=== PATIENT | male | born 1995 | race Two or more races ===

== ENCOUNTER 2021-02-08 13:39 | Emergency (ER) | payer SELFPAY ==
[~2021-02-08] VITALS: Ht 172.7 cm; Wt 113.4 kg
--- NOTE | 2021-02-08 13:59 | NUR ---
PT AMBULATORY TO ER BED 04 C/O LUQ ABDOMINAL PAIN NON RADIATING ON AND OFF SINCE SATURDAY PT STATES PAIN WORST EARLIER. DENIES N/V/D. PT STATES SIMILAR SYMPTOM A WHILE BACK BUT WAS NOT SEEN BY A DOCTOR BECAUSE IT WENT AWAY. 03/13 PAIN, STABLE VITALS. AWAITING MD ROSALES.
--- NOTE | 2021-02-08 14:31 | NUR ---
DR BURNS AT BEDSIDE FOR EVAL.
[2021-02-08] MEDS ORDERED: LIDOCAINE VISCOUS 2% UD 15 ML UDC ONE (14:37)
[2021-02-08] MEDS ORDERED: DICYCLOMINE HCL 10 MG CAPSULE PO ONE ×2 (14:37→15:00)
[2021-02-08] MEDS ORDERED: MAG HYDROX/AL HYDROX/SIMETH 30 ML UDC ONE (14:37)
[2021-02-08 14:55] LABS: BASOPHILS % (AUTO) 0.5 % (0.0-2.0); EOSINOPHILS % (AUTO) 1.6 % (0.0-6.0); HEMATOCRIT 46 % (39-51); HEMOGLOBIN 15.5 g/dL (13.5-17.5); LYMPHOCYTES # (AUTO) 1.6 /CMM (0.8-4.8); LYMPHOCYTES % (AUTO) 27.1 % (20.0-44.0); MEAN CORPUSCULAR HGB CONC 34 g/dl (31.0-36.0); MEAN CORPUSCULAR VOLUME 94 fL (80-96); MONOCYTES # (AUTO) 0.3 /CMM (0.1-1.30); MONOCYTES % (AUTO) 5.8 % (2.0-12.0); NEUTROPHILS # (AUTO) 3.8 /CMM (1.8-8.9); PLATELET COUNT (AUTO) 199 /CMM (150-450); RED BLOOD CELL COUNT(AUTO) 4.89 MIL/uL (4.5-6.0); WHITE BLOOD COUNT (AUTO) 5.8 K/uL (4.3-11.0)
[2021-02-08] MEDS ORDERED: MAG HYDROX/AL HYDROX/SIMETH 30 ML UDC PO ONE (15:00)
[2021-02-08] MEDS ORDERED: LIDOCAINE VISCOUS 2% UD 15 ML UDC MM ONE (15:00)
[2021-02-08 15:04] LABS: CALCIUM, SERUM 9.3 mg/dL (8.5-10.1); CREATININE 0.9 mg/dL (0.6-1.3)
[2021-02-08 15:14] LABS: ALBUMIN 3.8 g/dL (3.4-5.0); BILIRUBIN,DIRECT 0.1 mg/dL (0.0-0.2); BILIRUBIN,TOTAL 0.5 mg/dL (0.2-1.0); TOTAL PROTEIN, SERUM 7.2 g/dL (6.4-8.2)
[2021-02-08] MEDS ORDERED: DICY20TA11 PO (15:40)
--- NOTE | 2021-02-08 16:20 | NUR ---
Patient discharged to home in stable condition. Written and verbal after care instructions given. Patient verbalizes understanding of instruction.
[2021-02-08 16:21] VITALS: BP 130/86
== END 2021-02-08 16:22 | disposition home or self-care (01) ==
LOC: ER 13:39
DX: K58.9 Irritable bowel syndrome, unspecified (principal); R10.84 Generalized abdominal pain
CPT/HCPCS: 36415; 80048-TC; 80076-TC; 83690-TC; 85025-TC

== ENCOUNTER 2021-06-12 14:37 | Emergency (ER) | payer MEDICAID, OTHER ==
[~2021-06-12] VITALS: Ht 172.7 cm; Wt 113.4 kg
[~2021-06-12 14:37] MED LIST: DICY20TA11 PO
[2021-06-12 15:17] VITALS: BP 126/73
[2021-06-12] MEDS ORDERED: ACETAMINOPHEN 325 MG TABLET ONE (17:15)
[2021-06-12] MEDS ORDERED: IBUPROFEN 600 MG TABLET ONE (17:15)
[2021-06-12] MEDS: IBUPROFEN 600 MG TABLET PO ONE (17:18)
[2021-06-12] MEDS: ACETAMINOPHEN 325 MG TABLET PO ONE (17:18)
--- NOTE | 2021-06-12 17:27 | NUR ---
STREP THROAT SWAB SENT TO LAB
[2021-06-12] MEDS ORDERED: IBUP-1955 PO (18:15)
--- NOTE | 2021-06-12 18:22 | NUR ---
COVID SWAB SENT
--- NOTE | 2021-06-12 18:31 | NUR ---
Patient discharged to home in stable condition. Written and verbal after care instructions given. Patient verbalizes understanding of instruction.
--- NOTE | 2021-06-12 19:23 | NUR ---
REC'D + COVID RESULT FROM LAB. CALLED PT AND MADE HIM AWARE, PA ALSO MADE AWARE
== END 2021-06-12 18:31 | disposition home or self-care (01) ==
LOC: ER 14:52
DX: U07.1 COVID-19 (principal)
CPT/HCPCS: 87070; 87426; 87880; 99283; C9803; 86403-TC

== ENCOUNTER 2021-06-18 07:51 | Inpatient (IN) | payer OTHER ==
[~2021-06-18] VITALS: Ht 172.7 cm; Wt 113.4 kg
[~2021-06-18 07:51] MED LIST changes: +IBUP-1955 PO
--- NOTE | 2021-06-18 07:51 | NUR ---
PT BIB SELF C/O WORSENING SOB, ,TESTED (+) TO COVID 19 06/12/2021. 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 WILL CONTINUE TO MONITOR.
--- NOTE | 2021-06-18 08:05 | NUR ---
SEEN AND EXAMINED BY .
--- NOTE | 2021-06-18 08:27 | NUR ---
IV LINE ESTABLISHED BLOOD DRAWN AND SENT TO LAB.
[2021-06-18 08:42] LABS: BASOPHILS % (AUTO) 0.3 % (0.0-2.0); EOSINOPHILS % (AUTO) 1.4 % (0.0-6.0); HEMATOCRIT 46 % (39-51); HEMOGLOBIN 15.7 g/dL (13.5-17.5); LYMPHOCYTES # (AUTO) 1.1 K/uL (0.8-4.8); LYMPHOCYTES % (AUTO) 21.6 % (20.0-44.0); MEAN CORPUSCULAR HGB CONC 35 g/dl (31.0-36.0); MEAN CORPUSCULAR VOLUME 91 fL (80-96); MONOCYTES # (AUTO) 0.4 K/uL (0.1-1.30); MONOCYTES % (AUTO) 8.3 % (2.0-12.0); NEUTROPHILS # (AUTO) 3.3 K/uL (1.8-8.9); NEUTROPHILS % (AUTO) 68.4 % (43.0-81.0); PLATELET COUNT (AUTO) 244 K/uL (150-450); RED BLOOD CELL COUNT(AUTO) 5.02 MIL/uL (4.5-6.0); WHITE BLOOD COUNT (AUTO) 4.9 K/uL (4.3-11.0)
[2021-06-18 08:51] LABS: CALCIUM, SERUM 9.5 mg/dL (8.5-10.1); CARBON DIOXIDE 27 mmol/L (21-32); CHLORIDE 107 mmol/L (98-107); GLUCOSE 111 mg/dL (74-106); POTASSIUM 3.3 mmol/L (3.5-5.1); SODIUM SERUM 147 mmol/L (136-145); UREA NITROGEN, BLOOD 14 mg/dL (7-18)
[2021-06-18 09:05] LABS: ALANINE AMINOTRANSFERASE 49 U/L (12-78); ALBUMIN 3.4 g/dL (3.4-5.0); ALKALINE PHOSPHATASE 67 U/L (46-116); ASPARTATE AMINOTRANSFERASE 28 U/L (15-37); BILIRUBIN,TOTAL 0.5 mg/dL (0.2-1.0); TOTAL PROTEIN, SERUM 7.9 g/dL (6.4-8.2)
[2021-06-18] MEDS ORDERED: DEXAMETHASONE SOD PHOSPHATE 6 MG in IV D5W 50 ML IV ONE (09:30)
[2021-06-18] MEDS ORDERED: CEFTRIAXONE 1 G in IV D5W 50 ML IV ONE (09:30)
[2021-06-18] MEDS ORDERED: AZITHROMYCIN 250 MG TABLET PO ONE (09:30)
[2021-06-18] MEDS ORDERED: AZITHROMYCIN 250 MG TABLET ONE (09:31)
[2021-06-18] MEDS ORDERED: CEFTRIAXONE 1GM BAG (ER ONLY) 50 ML IV ONE (09:31)
[2021-06-18] MEDS ORDERED: DEXAMETHASONE SOD PHOSPHATE 10 MG/ML VIAL ONE (09:31)
[2021-06-18] MEDS ORDERED: DEXAMETHASONE SOD PHOSPHATE 10 MG/ML VIAL IV ONE (10:00)
--- NOTE | 2021-06-18 10:26 | NUR ---
ROOM GIVEN 112-1
--- NOTE | 2021-06-18 10:32 | NUR ---
MOVE SHEET SUBMITTED.
--- NOTE | 2021-06-18 10:52 | NUR ---
CALLED FOR REPORT. RN NOT AVAILABLE.
--- NOTE | 2021-06-18 11:14 | NUR ---
REPORT GIVEN TO RN SOON FOR KEVYN.
--- NOTE | 2021-06-18 11:24 | NUR ---
[facility] CALLED CONFIGURATION DEVELOPER PAGED.
[2021-06-18 12:30] VITALS: BP 122/73
--- NOTE | 2021-06-18 12:30 | NUR ---
RN NOTE PT A/Ox4, BREATHING RA, NO S/S OF RESP DISTRESS OR SOB, BREATHING EVEN AND UNLABORED, SPO2 94%. ALL COVID PRECAUTIONS IN PLACE. PT RAC #20 INACT AND FLUSHED, PATENT. PT DENIES PAIN, STATES ONLY SYMPTOM CURRENTLY IS FATIGUE. PT DID NOT OBTAIN COVID VAX. SKIN IS INTACT. STABLE WHEN ABMULATING. ALL PT SAFETY PRECAUTIONS IN PLACE, WILL CONT TO MONITOR
[2021-06-18] MEDS ORDERED: Z GUARD REMEDY 2 OZ OINT TP PRN (13:00)
[2021-06-18] MEDS ORDERED: ALBUTEROL SULFATE 8 GM HFA.AER.AD IH PRN (13:00)
[2021-06-18] MEDS ORDERED: MAG HYDROX/AL HYDROX/SIMETH 30 ML UDC PO PRN (13:00)
[2021-06-18] MEDS ORDERED: MAGNESIUM HYDROXIDE 30 ML UDC PO PRN (13:00)
[2021-06-18] MEDS ORDERED: ONDANSETRON HCL/PF 4 MG/2 ML VIAL IVP PRN (13:00)
[2021-06-18] MEDS ORDERED: ACETAMINOPHEN 325 MG TABLET PO PRN (13:00)
[2021-06-18] MEDS ORDERED: ZOLPIDEM TARTRATE 5 MG TABLET PO PRN (13:00)
[2021-06-18] MEDS ORDERED: HYDROCODONE/APAP 5/325MG TABLET PO PRN (13:00)
[2021-06-18 13:35] LABS: C-REACTIVE PROTEIN 4.5 mg/dL (0.0-0.9)
[2021-06-18] MEDS: ENOXAPARIN SODIUM 40 MG/0.4 ML DISP.SYRIN SQ SCH (14:11)
[2021-06-18] MEDS ORDERED: GUAIFENESIN/CODEINE 10 ML UDC PO PRN (14:30)
[2021-06-18] MEDS: CEFTRIAXONE 1 G in IV D5W 50 ML IV SCH (15:10)
[2021-06-18 16:00] VITALS: BP 122/71
--- NOTE | 2021-06-18 19:17 | NUR ---
RN CLOSING NOTE PT STABLE, ON RA, NO S/S OF RESP DISTRESS OR SOB. ALL PT SAFETY PRECAUTINOS IN PLACE, KEVYN ENDORSED TO RN
[2021-06-18 20:00] VITALS: BP 123/74
[2021-06-19] VITALS: BP 118/72
[2021-06-19 04:00] VITALS: BP 121/74
--- NOTE | 2021-06-19 07:16 | NUR ---
RN NOTE PATIENT A/O X4, IN BED AT RA SATURATING > 93%, NO SOB/ACUTE DISTRESS NOTED THROUGHOUT THE NIGHT, AFEBRILE, BED LOCKED AND LOWEST POSITION, S/R OF BED X2 UP, CALL MCKINNEY WITHIN REACH, ALL SAFETY PRECAUTIONS IN PLACED, WILL ENDORSE CONTINUITY OF CARE TO ONCOMING NURSE.
--- NOTE | 2021-06-19 07:25 | NUR ---
RN OPENING NOTE RECEIVED PATIENT IN BED. A/O X4. ON ROOM AIR, NO SOB NOTED. NO S/S OF RESPIRATORY DISTRESS. TELE READING SHOWS SR 70'S. DENIES ANY PAIN OR DISCOMFORT AT THIS TIME. IV ACCESS ON R AC #20, INTACT AND PATENT. SAFETY MEASURES MAINTAINED. BED IN LOWEST POSITION, BRAKES LOCKED. SIDE RAILS UP X2. CALL LIGHT WITHIN REACH. WILL CONTINUE PLAN OF CARE.
[2021-06-19 08:00] VITALS: BP 115/77
[2021-06-19] MEDS: AZITHROMYCIN 500 MG in IV D5W 250 ML IV SCH (08:20)
[2021-06-19] MEDS: PANTOPRAZOLE 40 MG TABLET.DR PO SCH (08:21)
[2021-06-19] MEDS: DEXAMETHASONE SOD PHOSPHATE 10 MG/ML VIAL IV SCH (08:21)
[2021-06-19 12:25] VITALS: BP 129/79
[2021-06-19] MEDS: ENOXAPARIN SODIUM 40 MG/0.4 ML DISP.SYRIN SQ SCH (13:04)
[2021-06-19] MEDS: CEFTRIAXONE 1 G in IV D5W 50 ML IV SCH (14:02)
[2021-06-19 15:14] LABS: C-REACTIVE PROTEIN 1.9 mg/dL (0.0-0.9)
[2021-06-19 16:00] VITALS: BP 111/65
--- NOTE | 2021-06-19 18:04 | NUR ---
RN CLOSING NOTE PATIENT RESTING IN BED. A/O X4. AMBULATORY. ON ROOM AIR, NO SOB NOTED. NO S/S OF RESPIRATORY DISTRESS. TELE READING SHOWS SR 70'S. NO REPORTS OF ANY PAIN OR DISCOMFORT AT THIS TIME. IV ACCESS ON R AC #20, INTACT AND PATENT. NO SIGNS OF INFILTRATION. DUE MEDS GIVEN ORDERED. ALL NEEDS HAVE BEEN MET AND ATTENDED. SAFETY MEASURES MAINTAINED. BED IN LOWEST POSITION, BRAKES LOCKED. SIDE RAILS UP X2. KEPT CALL LIGHT WITHIN REACH. WILL ENDORSE CONTINUITY OF CARE TO ONCOMING SHIFT.
[2021-06-19 20:00] VITALS: BP 117/84
--- NOTE | 2021-06-19 20:00 | NUR ---
[facility] NOTE PT IN BED AWAKE. A/O X4, NO SOB, NO DISTRESS OR DISCOMFORT NOTED. DENIES PAIN. ON TELE SR HR 66. RAC #20 G SL INTACT AND PATENT. SIDE RAILS UP X 2 AND CALL LIGHT WITHIN REACH. CONTINUE TO MONITOR HIM. PT REMAIN IN ISOLATION FOR COVID POSITIVE. ISOLATION PRECAUTIONS TAKEN.
[2021-06-20] VITALS: BP 129/78
[2021-06-20 04:00] VITALS: BP 136/64
--- NOTE | 2021-06-20 06:29 | NUR ---
TRANSFORMATION SPECIALIST NOTE PT IN BED AWAKE. NO DISTRESS OR DISCOMFORT NOTED. DENIES PAIN . RAC #20 G S; INTACT AND PATENT. ON TELE SR/SB 66. SIDE RAILS UP X 2 AND CALL LIGHT WITHIN REACH. WILL ENDORSE TO DAY SHIFT NURSE FOR CONTINUE TO CARE.
[2021-06-20 06:59] LABS: BASOPHILS # (AUTO) 0.1 K/uL (0.0-0.2); BASOPHILS % (AUTO) 1.7 % (0.0-2.0); EOSINOPHILS % (AUTO) 0.2 % (0.0-6.0); HEMATOCRIT 42 % (39-51); HEMOGLOBIN 14.6 g/dL (13.5-17.5); LYMPHOCYTES # (AUTO) 1.7 K/uL (0.8-4.8); LYMPHOCYTES % (AUTO) 22.5 % (20.0-44.0); MEAN CORPUSCULAR HGB CONC 35 g/dl (31.0-36.0); MEAN CORPUSCULAR VOLUME 91 fL (80-96); MONOCYTES # (AUTO) 0.7 K/uL (0.1-1.30); MONOCYTES % (AUTO) 9.6 % (2.0-12.0); NEUTROPHILS # (AUTO) 5.1 K/uL (1.8-8.9); PLATELET COUNT (AUTO) 273 K/uL (150-450); RED BLOOD CELL COUNT(AUTO) 4.63 MIL/uL (4.5-6.0); WHITE BLOOD COUNT (AUTO) 7.6 K/uL (4.3-11.0)
[2021-06-20 07:21] LABS: CALCIUM, SERUM 8.5 mg/dL (8.5-10.1); CREATININE 0.9 mg/dL (0.6-1.3); MAGNESIUM 2.5 mg/dL (1.8-2.4); PHOSPHORUS 4.1 mg/dL (2.5-4.9); POTASSIUM 3.3 mmol/L (3.5-5.1)
--- NOTE | 2021-06-20 07:31 | NUR ---
RN OPENING NOTE RECEIVED PATIENT LYING IN BED, AWAKE. A/O X4. STABLE ON ROOM AIR - NO SOB NOTED. NO DISTRESS/DISCOMFORT NOTED. TELE MONITOR READS SR IN THE 70S. IV ACCESS TO RIGHT AC #20 - INTACT AND PATENT - SALINE LOCKED. SAFETY MEASURES IN PLACE. CALL LIGHT WITHIN REACH. WILL CONTINUE TO MONITOR.
[2021-06-20] MEDS: PANTOPRAZOLE 40 MG TABLET.DR PO SCH (07:55)
[2021-06-20 08:00] VITALS: BP 123/70
[2021-06-20] MEDS: DEXAMETHASONE SOD PHOSPHATE 10 MG/ML VIAL IV SCH (08:00)
[2021-06-20] MEDS: AZITHROMYCIN 500 MG in IV D5W 250 ML IV SCH (08:01)
[2021-06-20] MEDS ORDERED: POTASSIUM CHLORIDE 20 MEQ TAB.PRT.SR PO SCH (10:00)
[2021-06-20 12:00] VITALS: BP 114/67
[2021-06-20] MEDS ORDERED: POTASSIUM CHLORIDE 20 MEQ TAB.PRT.SR PO ONE (12:30)
--- NOTE | 2021-06-20 13:15 | NUR ---
[facility] REPRESENTATIVE NOTE PATIENT DISCHARGED VIA PRIVATE CAR. STABLE, A/O X4. NO SOB NOTED AT REST OR UPON AMBULATION. NO PAIN OR DISTRESS NOTED AT THIS TIME. ALL PATIENT EDUCATION AND EXITCARE GONE OVER WITH AND GIVEN TO PATIENT. PATIENT VERBALIZED UNDERSTANDING. IV ACCESS REMOVED. WRISTBAND REMOVED. PATIENT ACCOMPANIED TO LOBBY MYSELF. PICKED UP BY . MD AND CHARGE NURSE AWARE OF DISCHARGE.
[2021-06-23] MEDS ORDERED: LIDOCAINE HCL/MPF 1% 30 ML VIAL IJ ONE (23:52)
== END 2021-06-20 13:20 | disposition home or self-care (01) | DRG 137 ==
LOC: ER 07:55 → TELE1 11:23
PROVIDERS: ATTEND Internal Medicine
DX: U07.1 COVID-19 (principal); J96.01 Acute respiratory failure with hypoxia; J12.82 Pneumonia due to coronavirus disease 2019; E87.6 Hypokalemia; E87.1 Hypo-osmolality and hyponatremia; E66.9 Obesity, unspecified; Z68.38 Body mass index [BMI] 38.0-38.9, adult; Z87.891 Personal history of nicotine dependence
CPT/HCPCS: 36415; 71045-TC; 80048-TC; 80053-TC; 82550-TC; 82728-TC; 83605-TC; 83615-TC; 83735-TC; 83880; 84100-TC; 84484-TC; 85025-TC; 85378-TC; 86140-TC; 87040-TC; 87081-TC; G0378; J0456; J0696; J1100; J1650; J7050; J7060; U0003

== ENCOUNTER 2021-12-18 12:24 | Emergency (ER) | payer OTHER ==
[~2021-12-18] VITALS: Ht 172.7 cm; Wt 120.2 kg
[2021-12-18 13:35] LABS: BASOPHILS % (AUTO) 0.2 % (0.0-2.0); EOSINOPHILS % (AUTO) 1.5 % (0.0-6.0); HEMATOCRIT 46 % (39-51); HEMOGLOBIN 15.5 g/dL (13.5-17.5); LYMPHOCYTES # (AUTO) 1.2 K/uL (0.8-4.8); LYMPHOCYTES % (AUTO) 24.5 % (20.0-44.0); MEAN CORPUSCULAR HGB CONC 34 g/dl (31.0-36.0); MEAN CORPUSCULAR VOLUME 91 fL (80-96); MONOCYTES # (AUTO) 0.3 K/uL (0.1-1.30); MONOCYTES % (AUTO) 6.3 % (2.0-12.0); NEUTROPHILS # (AUTO) 3.3 K/uL (1.8-8.9); NEUTROPHILS % (AUTO) 67.5 % (43.0-81.0); PLATELET COUNT (AUTO) 203 K/uL (150-450); RED BLOOD CELL COUNT(AUTO) 5.06 MIL/uL (4.5-6.0); WHITE BLOOD COUNT (AUTO) 4.9 K/uL (4.3-11.0)
[2021-12-18 13:51] LABS: BILIRUBIN,DIRECT 0.1 mg/dL (0.0-0.2); BILIRUBIN,TOTAL 0.5 mg/dL (0.2-1.0); CALCIUM, SERUM 9.6 mg/dL (8.5-10.1); POTASSIUM 3.9 mmol/L (3.5-5.1); TOTAL PROTEIN, SERUM 7.7 g/dL (6.4-8.2)
[2021-12-18] MEDS ORDERED: HYDR-4275 PO (14:11)
[2021-12-18] MEDS ORDERED: ONDA4TAB5 PO (14:11)
[2021-12-18] MEDS ORDERED: IBUP-1955 PO (14:11)
[2021-12-18] MEDS ORDERED: TAMS-12 PO (14:11)
[2021-12-18 14:18] LABS: BILIRUBIN,URINE NEGATIVE (NEGATIVE); COLOR,URINE YELLOW (YELLOW); LEUKOCYTE ESTERASE ,URINE NEGATIVE (NEGATIVE); NITRITE, URINE NEGATIVE (NEGATIVE); PROTEIN,URINE NEGATIVE (NEGATIVE); UGLUCOSE NEGATIVE (NEGATIVE); UROBILINOGEN,URINE 0.2 EU/dL (0.2)
[2021-12-18 14:25] VITALS: BP 112/67
== END 2021-12-18 14:26 | disposition home or self-care (01) ==
LOC: ER 12:30
DX: N20.0 Calculus of kidney (principal); Z87.19 Personal history of other diseases of the digestive system; Z79.1 Long term (current) use of non-steroidal anti-inflammatories (NSAID); Z79.891 Long term (current) use of opiate analgesic; Z79.899 Other long term (current) drug therapy
CPT/HCPCS: 36415; 80048-TC; 80076-TC; 83690-TC; 85025-TC